=== PATIENT | male | born 1960 | race African-American/Black ===

== ENCOUNTER 2023-05-06 14:07 | Inpatient (IN) | payer OTHER ==
[2023-05-06 15:38] VITALS: BMI 28.5
[2023-05-06] MEDS ORDERED: BENZOCAINE/MENTHOL (CHLORASEPTIC ) LOZENGE MM PRN (16:43)
[2023-05-06] MEDS ORDERED: NALOXONE HCL 0.4 MG/ML VIAL IM PRN (16:43)
[2023-05-06] MEDS ORDERED: LOPERAMIDE HCL 2 MG CAPSULE PO PRN (16:43)
[2023-05-06] MEDS ORDERED: MAG HYDROX/AL HYDROX/SIMETH 30 ML UNIT-DOSE CUP PO PRN (16:43)
[2023-05-06] MEDS ORDERED: ACETAMINOPHEN 325 MG TABLET (FP) PO PRN (16:43)
[2023-05-06] MEDS ORDERED: DICYCLOMINE HCL 10 MG CAPSULE PO PRN (16:43)
[2023-05-06] MEDS ORDERED: NICOTINE POLACRILEX 2 MG GUM BUC PRN (16:43)
[2023-05-06] MEDS ORDERED: POLYETHYLENE GLYCOL (HEALTHYLAX) 3350 17 GM PACKET PO PRN (16:43)
[2023-05-06] MEDS ORDERED: NALOXONE HCL (KLOXXADO) 8 MG SPRAY NS PRN (16:43)
[2023-05-06] MEDS ORDERED: guaiFENesin 600 MG TABLET.ER (FP) PO PRN (16:43)
[2023-05-06] MEDS ORDERED: AMMONIUM LACTATE 12% LOTION 225 GM BOTTLE TP PRN (16:43)
[2023-05-06] MEDS ORDERED: ONDANSETRON *ODT* 4 MG TABLET SL PRN (16:43)
[2023-05-06] MEDS ORDERED: MAGNESIUM HYDROX 2400MG/30ML ORAL SUSPENSION 30 ML CUP PO PRN (16:43)
[2023-05-06] MEDS ORDERED: BENZONATATE 200 MG CAPSULE PO PRN (16:43)
[2023-05-06] MEDS: MELATONIN 5 MG TABLETS PO SCH (22:13)
[2023-05-06] MEDS: THIAMINE HCL 100 MG TABLET (FP) PO SCH (22:13)
[2023-05-06] MEDS: hydrOXYzine PAMOATE 25 MG CAPSULE (FP) PO PRN (22:13)
[2023-05-06] MEDS: APIXABAN 5 MG TABLET PO SCH (22:13)
[2023-05-07] MEDS ORDERED: BUPRENORPHINE HCL 150 MCG, BUPRENORPHINE HCL 75 MCG BC PRN (10:32)
[2023-05-07] MEDS: PRENATAL VITAMINS W/ FOLIC ACID TABLET (FP) PO SCH (10:45)
[2023-05-07] MEDS: hydrOXYzine PAMOATE 25 MG CAPSULE (FP) PO PRN ×2 (10:46→22:37)
[2023-05-07] MEDS: APIXABAN 5 MG TABLET PO SCH ×2 (10:46→22:37)
[2023-05-07] MEDS ORDERED: BUPRENORPHINE HCL 150 MCG, BUPRENORPHINE HCL 75 MCG BC ONE (11:00)
[2023-05-07 12:23] LABS: POTASSIUM 3.8 mmol/L (3.5-5.1)
[2023-05-07 12:26] LABS: HEMOGLOBIN 12.9 GM/dL (11.7-16.9); MCH 28.8 pg (25.7-33.7); MCHC 33.8 g/dl (32.0-35.9); MEAN PLT VOLUME 9.4 fl (7.5-11.1); PLATELET COUNT 118 10^3/uL (134-434); RBC 4.48 M/mm3 (4.00-5.60); RDW 14.1 % (11.9-15.9); WHITE BLOOD COUNT 4.3 K/mm3 (4.0-10.0)
[2023-05-07 12:27] LABS: CALCIUM 8.7 mg/dL (8.5-10.1)
[2023-05-07 12:28] LABS: ALBUMIN 3.2 g/dl (3.4-5.0); BLOOD UREA NITROGEN 21.1 mg/dL (7-18)
[2023-05-07 12:31] LABS: CREATININE 1.2 mg/dL (0.55-1.3)
[2023-05-07 12:32] LABS: TOT PROT 6.6 g/dl (6.4-8.2)
[2023-05-07 13:22] LABS: HIV INTERPRETATION NEGATIVE (NEGATIVE)
[2023-05-07] MEDS: THIAMINE HCL 100 MG TABLET (FP) PO SCH (22:37)
[2023-05-07] MEDS: MELATONIN 5 MG TABLETS PO SCH (22:37)
[2023-05-07] MEDS: BACLOFEN 10 MG TABLET (FP) PO PRN (22:38)
[2023-05-08] MEDS ORDERED: BUPRENORPHINE HCL 150 MCG, BUPRENORPHINE HCL 75 MCG BC PRN
[2023-05-08] MEDS: BUPRENORPHINE HCL 150 MCG, BUPRENORPHINE HCL 75 MCG BC SCH ×2 (06:15→17:25)
[2023-05-08] MEDS: PRENATAL VITAMINS W/ FOLIC ACID TABLET (FP) PO SCH (10:09)
[2023-05-08] MEDS: APIXABAN 5 MG TABLET PO SCH ×2 (10:09→22:10)
[2023-05-08] MEDS: hydrOXYzine PAMOATE 25 MG CAPSULE (FP) PO PRN ×2 (10:09→17:25)
[2023-05-08] MEDS ORDERED: amLODIPine BESYLATE 5 MG TABLET (FP) PO SCH ×2 (11:00→15:30)
[2023-05-08] MEDS ORDERED: LOSARTAN POTASSIUM 50 MG TABLET PO ONE (16:00)
[2023-05-08] MEDS: BACLOFEN 10 MG TABLET (FP) PO PRN (17:25)
[2023-05-08] MEDS: THIAMINE HCL 100 MG TABLET (FP) PO SCH (22:10)
[2023-05-08] MEDS: MELATONIN 5 MG TABLETS PO SCH (22:10)
[2023-05-09] MEDS: BUPRENORPHINE HCL 450 MCG FILM BC SCH ×2 (05:33→17:02)
[2023-05-09] MEDS: amLODIPine BESYLATE 10 MG TABLET (FP) PO SCH (09:42)
[2023-05-09] MEDS: APIXABAN 5 MG TABLET PO SCH ×2 (09:42→22:50)
[2023-05-09] MEDS: hydrOXYzine PAMOATE 25 MG CAPSULE (FP) PO PRN (09:42)
[2023-05-09] MEDS: PRENATAL VITAMINS W/ FOLIC ACID TABLET (FP) PO SCH (09:42)
[2023-05-09] MEDS: cloNIDine HCL 0.1 MG TABLET PO PRN (13:51)
[2023-05-09] MEDS: MELATONIN 5 MG TABLETS PO SCH (22:50)
[2023-05-09] MEDS: THIAMINE HCL 100 MG TABLET (FP) PO SCH (22:51)
[2023-05-10] MEDS: BUPRENORPHINE/NALOXONE 4 MG/1 MG FILM PACKET SL SCH ×2 (06:10→17:35)
[2023-05-10] MEDS: PRENATAL VITAMINS W/ FOLIC ACID TABLET (FP) PO SCH (09:47)
[2023-05-10] MEDS: amLODIPine BESYLATE 10 MG TABLET (FP) PO SCH (09:47)
[2023-05-10] MEDS: hydrOXYzine PAMOATE 25 MG CAPSULE (FP) PO PRN ×2 (09:47→22:21)
[2023-05-10] MEDS: APIXABAN 5 MG TABLET PO SCH ×2 (09:47→22:21)
[2023-05-10] MEDS: cloNIDine HCL 0.1 MG TABLET PO PRN (09:47)
[2023-05-10] MEDS: THIAMINE HCL 100 MG TABLET (FP) PO SCH (22:21)
[2023-05-10] MEDS: BACLOFEN 10 MG TABLET (FP) PO PRN (22:21)
[2023-05-10] MEDS: MELATONIN 5 MG TABLETS PO SCH (22:22)
[2023-05-11] MEDS ORDERED: BUPRENORPHINE/NALOXONE 8 MG/2 MG FILM PACKET SL ONE (06:00)
[2023-05-11] MEDS: amLODIPine BESYLATE 10 MG TABLET (FP) PO SCH (09:33)
[2023-05-11] MEDS: APIXABAN 5 MG TABLET PO SCH (09:33)
[2023-05-11] MEDS: hydrOXYzine PAMOATE 25 MG CAPSULE (FP) PO PRN (09:33)
[2023-05-11] MEDS: PRENATAL VITAMINS W/ FOLIC ACID TABLET (FP) PO SCH (09:33)
[2023-05-11 17:06] VITALS: BP 121/61; PULSE 82; RESP 18; TEMP 97.8
== END 2023-05-11 18:09 | disposition other institution (70) | DRG 773 ==
LOC: YASAS 14:07 → Y6N 17:09
PROVIDERS: ADMIT Allergy & Immunology; ATTEND Psychiatry & Neurology Pain Medicine
PROC: HZ2ZZZZ Detoxification Services for Substance Abuse Treatment (ICD-10-PCS; principal; 2023-05-06)
DX: F11.23 Opioid dependence with withdrawal (principal); F14.20 Cocaine dependence, uncomplicated; Z72.0 Tobacco use; I10 Essential (primary) hypertension; I82.502 Chronic embolism and thrombosis of unspecified deep veins of left lower extremity; Z79.01 Long term (current) use of anticoagulants; Z99.89 Dependence on other enabling machines and devices; Z59.02 Unsheltered homelessness
CPT/HCPCS: 36415; 80053; 84520; 85027; 86780; 87389; 87635; 93005; 93010; J0475

== ENCOUNTER 2023-05-11 18:21 | Inpatient (IN) | payer OTHER ==
[~2023-05-11 18:21] MED LIST: BENZOCAINE/MENTHOL (CHLORASEPTIC ) LOZENGE MM PRN; BENZONATATE 200 MG CAPSULE PO PRN; COLLOIDAL OATMEAL 1 BAR EACH TP PRN; IBUPROFEN 400 MG TABLET (FP) PO PRN; LOPERAMIDE HCL 2 MG CAPSULE PO PRN; MAG HYDROX/AL HYDROX/SIMETH 30 ML UNIT-DOSE CUP PO PRN; MAGNESIUM HYDROX 2400MG/30ML ORAL SUSPENSION 30 ML CUP PO PRN; NALOXONE HCL (KLOXXADO) 8 MG SPRAY NS PRN; NALOXONE HCL 0.4 MG/ML VIAL IVPUSH PRN; NICOTINE 7 MG/24 HOURS TOPICAL PATCH TD PRN; NICOTINE POLACRILEX 2 MG GUM BUC PRN; POLYETHYLENE GLYCOL (HEALTHYLAX) 3350 17 GM PACKET PO PRN; guaiFENesin 600 MG TABLET.ER (FP) PO PRN; hydrOXYzine PAMOATE 25 MG CAPSULE (FP) PO PRN
[2023-05-11] MEDS: THIAMINE HCL 100 MG TABLET (FP) PO SCH (21:55)
[2023-05-11] MEDS: APIXABAN 5 MG TABLET PO SCH (21:56)
[2023-05-11] MEDS: MELATONIN 5 MG TABLETS PO SCH (21:56)
[2023-05-11] MEDS: IBUPROFEN 600 MG TABLET (FP) PO PRN (21:56)
[2023-05-12] MEDS: BUPRENORPHINE/NALOXONE 8 MG/2 MG FILM PACKET SL SCH (06:10)
[2023-05-12] MEDS: PRENATAL VITAMINS W/ FOLIC ACID TABLET (FP) PO SCH (09:38)
[2023-05-12] MEDS: amLODIPine BESYLATE 10 MG TABLET (FP) PO SCH (09:38)
[2023-05-12] MEDS: APIXABAN 5 MG TABLET PO SCH ×2 (09:38→21:15)
[2023-05-12] MEDS: THIAMINE HCL 100 MG TABLET (FP) PO SCH (21:15)
[2023-05-12] MEDS: IBUPROFEN 600 MG TABLET (FP) PO PRN (21:16)
[2023-05-12] MEDS: MELATONIN 5 MG TABLETS PO SCH (21:16)
[2023-05-13] MEDS: BUPRENORPHINE/NALOXONE 8 MG/2 MG FILM PACKET SL SCH (06:30)
[2023-05-13] MEDS: APIXABAN 5 MG TABLET PO SCH ×2 (09:58→21:31)
[2023-05-13] MEDS: amLODIPine BESYLATE 10 MG TABLET (FP) PO SCH (09:58)
[2023-05-13] MEDS: PRENATAL VITAMINS W/ FOLIC ACID TABLET (FP) PO SCH (09:58)
[2023-05-13] MEDS: IBUPROFEN 600 MG TABLET (FP) PO PRN (10:00)
[2023-05-13] MEDS: THIAMINE HCL 100 MG TABLET (FP) PO SCH (21:31)
[2023-05-13] MEDS: MELATONIN 5 MG TABLETS PO SCH (21:31)
[2023-05-13] MEDS: METHOCARBAMOL 500 MG TABLET PO PRN (21:34)
[2023-05-14] MEDS: BUPRENORPHINE/NALOXONE 8 MG/2 MG FILM PACKET SL SCH (06:29)
[2023-05-14] MEDS: APIXABAN 5 MG TABLET PO SCH ×2 (09:59→21:21)
[2023-05-14] MEDS: PRENATAL VITAMINS W/ FOLIC ACID TABLET (FP) PO SCH (09:59)
[2023-05-14] MEDS: amLODIPine BESYLATE 10 MG TABLET (FP) PO SCH (09:59)
[2023-05-14] MEDS: ACETAMINOPHEN 325 MG TABLET (FP) PO PRN ×2 (10:00→21:19)
[2023-05-14] MEDS: MELATONIN 5 MG TABLETS PO SCH (21:19)
[2023-05-14] MEDS: THIAMINE HCL 100 MG TABLET (FP) PO SCH (21:19)
[2023-05-15] MEDS: BUPRENORPHINE/NALOXONE 8 MG/2 MG FILM PACKET SL SCH (06:28)
[2023-05-15] MEDS: ACETAMINOPHEN 325 MG TABLET (FP) PO PRN (06:29)
[2023-05-15] MEDS: APIXABAN 5 MG TABLET PO SCH ×2 (10:49→21:45)
[2023-05-15] MEDS: amLODIPine BESYLATE 10 MG TABLET (FP) PO SCH (10:49)
[2023-05-15] MEDS: PRENATAL VITAMINS W/ FOLIC ACID TABLET (FP) PO SCH (10:49)
[2023-05-15] MEDS: THIAMINE HCL 100 MG TABLET (FP) PO SCH (21:45)
[2023-05-15] MEDS: MELATONIN 5 MG TABLETS PO SCH (21:45)
[2023-05-16] MEDS: ACETAMINOPHEN 325 MG TABLET (FP) PO PRN (06:36)
[2023-05-16] MEDS: BUPRENORPHINE/NALOXONE 8 MG/2 MG FILM PACKET SL SCH (06:37)
[2023-05-16] MEDS: PRENATAL VITAMINS W/ FOLIC ACID TABLET (FP) PO SCH (09:49)
[2023-05-16] MEDS: amLODIPine BESYLATE 10 MG TABLET (FP) PO SCH (09:50)
[2023-05-16] MEDS: APIXABAN 5 MG TABLET PO SCH ×2 (09:50→21:39)
[2023-05-16] MEDS: METHOCARBAMOL 500 MG TABLET PO PRN ×2 (09:50→21:39)
[2023-05-16] MEDS: THIAMINE HCL 100 MG TABLET (FP) PO SCH (21:39)
[2023-05-16] MEDS: MELATONIN 5 MG TABLETS PO SCH (21:39)
[2023-05-17] MEDS: BUPRENORPHINE/NALOXONE 8 MG/2 MG FILM PACKET SL SCH (06:28)
[2023-05-17] MEDS: APIXABAN 5 MG TABLET PO SCH ×2 (09:53→21:32)
[2023-05-17] MEDS: amLODIPine BESYLATE 10 MG TABLET (FP) PO SCH (09:53)
[2023-05-17] MEDS: PRENATAL VITAMINS W/ FOLIC ACID TABLET (FP) PO SCH (09:53)
[2023-05-17] MEDS: ACETAMINOPHEN 325 MG TABLET (FP) PO PRN ×2 (12:32→21:32)
[2023-05-17] MEDS: MELATONIN 5 MG TABLETS PO SCH (21:32)
[2023-05-17] MEDS: THIAMINE HCL 100 MG TABLET (FP) PO SCH (21:32)
[2023-05-18] MEDS: BUPRENORPHINE/NALOXONE 8 MG/2 MG FILM PACKET SL SCH (06:14)
[2023-05-18] MEDS: PRENATAL VITAMINS W/ FOLIC ACID TABLET (FP) PO SCH (09:34)
[2023-05-18] MEDS: APIXABAN 5 MG TABLET PO SCH ×2 (09:34→21:41)
[2023-05-18] MEDS: amLODIPine BESYLATE 10 MG TABLET (FP) PO SCH (09:34)
[2023-05-18] MEDS: ACETAMINOPHEN 325 MG TABLET (FP) PO PRN ×2 (09:36→21:41)
[2023-05-18] MEDS: MELATONIN 5 MG TABLETS PO SCH (21:41)
[2023-05-18] MEDS: THIAMINE HCL 100 MG TABLET (FP) PO SCH (21:41)
[2023-05-19] MEDS: BUPRENORPHINE/NALOXONE 8 MG/2 MG FILM PACKET SL SCH (06:25)
[2023-05-19] MEDS: ACETAMINOPHEN 325 MG TABLET (FP) PO PRN ×2 (09:05→21:31)
[2023-05-19] MEDS: APIXABAN 5 MG TABLET PO SCH ×2 (09:05→21:31)
[2023-05-19] MEDS: amLODIPine BESYLATE 10 MG TABLET (FP) PO SCH (09:05)
[2023-05-19] MEDS: PRENATAL VITAMINS W/ FOLIC ACID TABLET (FP) PO SCH (09:05)
[2023-05-19] MEDS ORDERED: LIDOCAINE 5% TOPICAL PATCH TP SCH (11:02)
[2023-05-19] MEDS: LIDOCAINE 4% PATCH TP SCH (12:06)
[2023-05-19] MEDS: THIAMINE HCL 100 MG TABLET (FP) PO SCH (21:31)
[2023-05-19] MEDS: MELATONIN 5 MG TABLETS PO SCH (21:31)
[2023-05-19] MEDS ORDERED: LIDOCAINE PATCH REMOVAL MC SCH (22:00)
[2023-05-19] MEDS: LIDOCAINE PATCH REMOVAL MC SCH (22:08)
[2023-05-20] MEDS: BUPRENORPHINE/NALOXONE 8 MG/2 MG FILM PACKET SL SCH (06:23)
[2023-05-20] MEDS: APIXABAN 5 MG TABLET PO SCH ×2 (10:11→22:09)
[2023-05-20] MEDS: ACETAMINOPHEN 325 MG TABLET (FP) PO PRN ×2 (10:11→22:09)
[2023-05-20] MEDS: amLODIPine BESYLATE 10 MG TABLET (FP) PO SCH (10:11)
[2023-05-20] MEDS: LIDOCAINE 4% PATCH TP SCH (10:12)
[2023-05-20] MEDS: PRENATAL VITAMINS W/ FOLIC ACID TABLET (FP) PO SCH (10:12)
[2023-05-20] MEDS ORDERED: LIDOCAINE 5% TOPICAL PATCH TP SCH (10:30)
[2023-05-20] MEDS: MELATONIN 5 MG TABLETS PO SCH (22:09)
[2023-05-20] MEDS: THIAMINE HCL 100 MG TABLET (FP) PO SCH (22:10)
[2023-05-20] MEDS: LIDOCAINE PATCH REMOVAL MC SCH (22:10)
[2023-05-21] MEDS: ACETAMINOPHEN 325 MG TABLET (FP) PO PRN (06:29)
[2023-05-21] MEDS: BUPRENORPHINE/NALOXONE 8 MG/2 MG FILM PACKET SL SCH (06:30)
[2023-05-21] MEDS: PRENATAL VITAMINS W/ FOLIC ACID TABLET (FP) PO SCH (09:56)
[2023-05-21] MEDS: APIXABAN 5 MG TABLET PO SCH ×2 (09:56→21:26)
[2023-05-21] MEDS: amLODIPine BESYLATE 10 MG TABLET (FP) PO SCH (09:56)
[2023-05-21] MEDS: LIDOCAINE 4% PATCH TP SCH (09:56)
[2023-05-21] MEDS ORDERED: IBUPROFEN 400 MG TABLET (FP) PO PRN (11:07)
[2023-05-21] MEDS: METHYL SALICYLATE/MENTHOL OINT 30 GM TUBE TP SCH (12:30)
[2023-05-21] MEDS: MELATONIN 5 MG TABLETS PO SCH (21:26)
[2023-05-21] MEDS: LIDOCAINE PATCH REMOVAL MC SCH (21:26)
[2023-05-21] MEDS: THIAMINE HCL 100 MG TABLET (FP) PO SCH (21:26)
[2023-05-22] MEDS: BUPRENORPHINE/NALOXONE 8 MG/2 MG FILM PACKET SL SCH (06:02)
[2023-05-22] MEDS: APIXABAN 5 MG TABLET PO SCH ×2 (10:08→21:12)
[2023-05-22] MEDS: PRENATAL VITAMINS W/ FOLIC ACID TABLET (FP) PO SCH (10:09)
[2023-05-22] MEDS: LIDOCAINE 4% PATCH TP SCH (10:09)
[2023-05-22] MEDS: METHYL SALICYLATE/MENTHOL OINT 30 GM TUBE TP SCH (10:09)
[2023-05-22] MEDS: amLODIPine BESYLATE 10 MG TABLET (FP) PO SCH (10:10)
[2023-05-22] MEDS: MELATONIN 5 MG TABLETS PO SCH (21:11)
[2023-05-22] MEDS: THIAMINE HCL 100 MG TABLET (FP) PO SCH (21:11)
[2023-05-22] MEDS: LIDOCAINE PATCH REMOVAL MC SCH (21:12)
[2023-05-23] MEDS: BUPRENORPHINE/NALOXONE 8 MG/2 MG FILM PACKET SL SCH (06:38)
[2023-05-23] MEDS: APIXABAN 5 MG TABLET PO SCH ×2 (09:50→21:48)
[2023-05-23] MEDS: PRENATAL VITAMINS W/ FOLIC ACID TABLET (FP) PO SCH (09:50)
[2023-05-23] MEDS: amLODIPine BESYLATE 10 MG TABLET (FP) PO SCH (09:50)
[2023-05-23] MEDS: LIDOCAINE 4% PATCH TP SCH (09:50)
[2023-05-23] MEDS: METHYL SALICYLATE/MENTHOL OINT 30 GM TUBE TP SCH (09:51)
[2023-05-23] MEDS: LIDOCAINE PATCH REMOVAL MC SCH (21:48)
[2023-05-23] MEDS: THIAMINE HCL 100 MG TABLET (FP) PO SCH (21:49)
[2023-05-23] MEDS: MELATONIN 5 MG TABLETS PO SCH (21:49)
[2023-05-24] MEDS: BUPRENORPHINE/NALOXONE 8 MG/2 MG FILM PACKET SL SCH (06:31)
[2023-05-24 07:17] VITALS: RESP 18
[2023-05-24] MEDS: LIDOCAINE 4% PATCH TP SCH (09:46)
[2023-05-24] MEDS: APIXABAN 5 MG TABLET PO SCH ×2 (09:47→21:46)
[2023-05-24] MEDS: amLODIPine BESYLATE 10 MG TABLET (FP) PO SCH (09:47)
[2023-05-24] MEDS: PRENATAL VITAMINS W/ FOLIC ACID TABLET (FP) PO SCH (09:47)
[2023-05-24] MEDS: CYCLOBENZAPRINE HCL 5 MG TABLET PO PRN (09:47)
[2023-05-24] MEDS: ACETAMINOPHEN 325 MG TABLET (FP) PO PRN ×2 (09:48→21:48)
[2023-05-24] MEDS: METHYL SALICYLATE/MENTHOL OINT 30 GM TUBE TP SCH (11:01)
[2023-05-24] MEDS: MELATONIN 5 MG TABLETS PO SCH (21:46)
[2023-05-24] MEDS: THIAMINE HCL 100 MG TABLET (FP) PO SCH (21:57)
[2023-05-24] MEDS: LIDOCAINE PATCH REMOVAL MC SCH (21:57)
[2023-05-25] MEDS: BUPRENORPHINE/NALOXONE 8 MG/2 MG FILM PACKET SL SCH (06:33)
[2023-05-25] MEDS: LIDOCAINE 4% PATCH TP SCH (09:43)
[2023-05-25] MEDS: APIXABAN 5 MG TABLET PO SCH ×2 (09:44→21:45)
[2023-05-25] MEDS: PRENATAL VITAMINS W/ FOLIC ACID TABLET (FP) PO SCH (09:44)
[2023-05-25] MEDS: amLODIPine BESYLATE 10 MG TABLET (FP) PO SCH (09:44)
[2023-05-25] MEDS: CYCLOBENZAPRINE HCL 5 MG TABLET PO PRN (09:45)
[2023-05-25] MEDS: METHYL SALICYLATE/MENTHOL OINT 30 GM TUBE TP SCH (09:46)
[2023-05-25] MEDS: ACETAMINOPHEN 325 MG TABLET (FP) PO PRN (09:46)
[2023-05-25] MEDS: THIAMINE HCL 100 MG TABLET (FP) PO SCH (21:45)
[2023-05-25] MEDS: MELATONIN 5 MG TABLETS PO SCH (21:45)
[2023-05-25] MEDS: LIDOCAINE PATCH REMOVAL MC SCH (22:01)
[2023-05-26] MEDS: BUPRENORPHINE/NALOXONE 8 MG/2 MG FILM PACKET SL SCH (06:16)
[2023-05-26] MEDS: LIDOCAINE 4% PATCH TP SCH (10:04)
[2023-05-26] MEDS: PRENATAL VITAMINS W/ FOLIC ACID TABLET (FP) PO SCH (10:05)
[2023-05-26] MEDS: CYCLOBENZAPRINE HCL 5 MG TABLET PO PRN (10:05)
[2023-05-26] MEDS: METHYL SALICYLATE/MENTHOL OINT 30 GM TUBE TP SCH (10:06)
[2023-05-26] MEDS: APIXABAN 5 MG TABLET PO SCH ×2 (10:06→22:11)
[2023-05-26] MEDS: amLODIPine BESYLATE 10 MG TABLET (FP) PO SCH (10:06)
[2023-05-26] MEDS: ACETAMINOPHEN 325 MG TABLET (FP) PO PRN ×2 (10:07→22:12)
[2023-05-26] MEDS: MELATONIN 5 MG TABLETS PO SCH (22:11)
[2023-05-26] MEDS: THIAMINE HCL 100 MG TABLET (FP) PO SCH (22:11)
[2023-05-26] MEDS: LIDOCAINE PATCH REMOVAL MC SCH (23:12)
[2023-05-27] MEDS: BUPRENORPHINE/NALOXONE 8 MG/2 MG FILM PACKET SL SCH (06:38)
[2023-05-27] MEDS: LIDOCAINE 4% PATCH TP SCH (10:05)
[2023-05-27] MEDS: amLODIPine BESYLATE 10 MG TABLET (FP) PO SCH (10:06)
[2023-05-27] MEDS: METHYL SALICYLATE/MENTHOL OINT 30 GM TUBE TP SCH (10:06)
[2023-05-27] MEDS: PRENATAL VITAMINS W/ FOLIC ACID TABLET (FP) PO SCH (10:06)
[2023-05-27] MEDS: APIXABAN 5 MG TABLET PO SCH ×2 (10:06→22:13)
[2023-05-27] MEDS: ACETAMINOPHEN 325 MG TABLET (FP) PO PRN (10:07)
[2023-05-27] MEDS: THIAMINE HCL 100 MG TABLET (FP) PO SCH (22:13)
[2023-05-27] MEDS: LIDOCAINE PATCH REMOVAL MC SCH (22:14)
[2023-05-27] MEDS: MELATONIN 5 MG TABLETS PO SCH (22:14)
[2023-05-27] MEDS: CYCLOBENZAPRINE HCL 5 MG TABLET PO PRN (22:15)
[2023-05-28] MEDS: BUPRENORPHINE/NALOXONE 8 MG/2 MG FILM PACKET SL SCH (06:19)
[2023-05-28 07:49] VITALS: TEMP 97.7
[2023-05-28] MEDS: APIXABAN 5 MG TABLET PO SCH (09:19)
[2023-05-28] MEDS: amLODIPine BESYLATE 10 MG TABLET (FP) PO SCH (09:19)
[2023-05-28] MEDS: LIDOCAINE 4% PATCH TP SCH (09:19)
[2023-05-28] MEDS: METHYL SALICYLATE/MENTHOL OINT 30 GM TUBE TP SCH (09:20)
[2023-05-28] MEDS: PRENATAL VITAMINS W/ FOLIC ACID TABLET (FP) PO SCH (09:21)
[2023-05-28 13:13] VITALS: BP 145/68; PULSE 103
== END 2023-05-28 09:47 | disposition short-term general hospital (02) | DRG 772 ==
LOC: YASAS 18:21 → Y5N 18:23
PROVIDERS: ADMIT Allergy & Immunology; ATTEND Psychiatry & Neurology Pain Medicine
PROC: HZ42ZZZ Group Counseling for Substance Abuse Treatment, Cognitive-Behavioral (ICD-10-PCS; principal; 2023-05-11)
DX: F11.20 Opioid dependence, uncomplicated (principal); F14.20 Cocaine dependence, uncomplicated; F17.210 Nicotine dependence, cigarettes, uncomplicated; I10 Essential (primary) hypertension; M54.50 Low back pain, unspecified; G89.29 Other chronic pain; Z86.718 Personal history of other venous thrombosis and embolism; Z79.01 Long term (current) use of anticoagulants; Z99.89 Dependence on other enabling machines and devices; Z59.00 Homelessness unspecified
CPT/HCPCS: 36415; 86803